=== PATIENT | female | born 1950 | race Caucasian/White ===

== ENCOUNTER → 2018-12-27 | Outpatient (CLI) | payer MEDICARE, OTHER ==
--- NOTE | 2018-12-27 10:19 | BD ---
EXAMINATION TYPE: Axial Bone Density DATE OF EXAM: 12/27/2018 CLINICAL HISTORY: Height: 62.25 Weight: 146 FRAX RISK QUESTIONS: Alcohol (3 or more units per day): no Family History (Parent hip fracture): unsure if mother broke hip, mother did have hip surgery Glucocorticoids (More than 3mos): no (Ex: prednisone, prednisolone, methylprednisolone, dexamethasone, and hydrocortisone). History of Fracture in Adulthood: no Secondary Osteoporosis: 1. Type 1 Diabetes: no 2. Hyperthyroidism: no 3. Menopause before 45: no 4. Malnutrition: no 5. Chronic liver disease: no Rheumatoid Arthritis: no Current Tobacco Use: no RISK FACTORS HISTORY OF: Family History of Osteoporosis: unsure Active: yes Diet low in dairy products/other sources of calcium: at least one serving a day Postmenopausal woman: yes Take estrogen and/or progesterone medications: no Lost more than 2 inches in height since high school: unsure Frequent falls: no Poor Health: no Hyperparathyroidism: no Adrenal Insufficiency: no MEDICATIONS: Thyroid Medications: no Osteoporosis Medications: unsure Additional Medications: Additional History: EXAM MEASUREMENTS: Bone mineral densitometry was performed using the [employer]. Bone mineral density as measured about the Lumbar spine is: ----- L1-L4(G/cm2): -0.8 T Score Values are as follows: ----- L2: -1.2 ----- L3: -0.8 ----- L4: -0.1 ----- L1-L4: -0.8 Bone mineral density has: Decreased -0.9% since study of: 07/09/2013 Bone mineral density about the R hip (g/cm2): 0.703 Bone mineral density about the L hip (g/cm2): 0.721 T Score values are as follows: -----R Neck: -2.4 -----L Neck: -2.3 -----R Total: -2.1 -----L Total: -1.8 Bone mineral density has: Decreased -3.5% since study of: 07/09/2013 IMPRESSION: Osteopenia of the bilateral proximal femora. NOTE: T-SCORE=SD OF THE YOUNG ADULT MEAN.
--- NOTE | 2018-12-28 11:32 | MM ---
Reason for exam: screening (asymptomatic). Last mammogram was performed 5 years and 6 months ago. History: Patient is postmenopausal. Family history of breast cancer in maternal grandmother at age 65. Physical Findings: A clinical breast exam by your physician is recommended on an annual basis and results should be correlated with mammographic findings. MG 3D Screening Mammo W/Cad Bilateral CC and MLO view(s) were taken. Prior study comparison: July 09, 2013, bilateral digital screening mammo w/CAD. June 28, 2012, bilateral digital screening mammo w/CAD. The breast tissue is heterogeneously dense. This may lower the sensitivity of mammography. No suspicious abnormality. No significant changes when compared with prior studies. ASSESSMENT: Negative, BI-RAD 1 RECOMMENDATION: Routine screening mammogram of both breasts in 1 year.
== END | disposition home or self-care (01) ==
LOC: RADMAMWWP 07:03
PROVIDERS: ATTEND Family Medicine
DX: Z12.31 Encounter for screening mammogram for malignant neoplasm of breast (principal); M85.851 Other specified disorders of bone density and structure, right thigh; M85.852 Other specified disorders of bone density and structure, left thigh; Z78.0 Asymptomatic menopausal state
CPT/HCPCS: 77063; 77067; 77080

== ENCOUNTER → 2019-02-07 | Outpatient (CLI) | payer MEDICARE, OTHER ==
--- NOTE | 2019-02-07 14:12 | US ---
EXAMINATION TYPE: US venous doppler duplex LE BI DATE OF EXAM: 02/07/2019 1:43 PM COMPARISON: NONE CLINICAL HISTORY: 68-year-old female Swelling R22.41. Swelling bilateral lower extremities, right giuseppe e worse. SIDE PERFORMED: Bilateral TECHNIQUE: The lower extremity deep venous system is examined utilizing real time linear array sonog loretta with graded compression, doppler sonography and color-flow sonography. FINDINGS: VESSELS IMAGED: External Iliac Vein (EIV) Common Femoral Vein Deep Femoral Vein Greater Saphenous Vein * Femoral Vein Popliteal Vein Small Saphenous Vein * Proximal Calf Veins (* superficial vessels) Right Leg: Negative for DVT Left Leg: Negative for DVT No evidence of DVT in bilateral lower extremities. IMPRESSION: No evidence for DVT within the bilateral lower extremities imaged from the groin to the upper calves.
== END | disposition home or self-care (01) ==
LOC: RADUSWWP 13:00
PROVIDERS: ATTEND Family Medicine
DX: R22.41 Localized swelling, mass and lump, right lower limb (principal)
CPT/HCPCS: 93970

== ENCOUNTER → 2021-09-10 | Outpatient (CLI) | payer MEDICARE, OTHER ==
--- NOTE | 2021-09-14 10:21 | MM ---
Reason for exam: screening (asymptomatic). Last mammogram was performed 2 years and 8 months ago. History: Patient is postmenopausal. Family history of breast cancer in maternal grandmother at age 65. Took hormonal contraceptives for 5 years. Physical Findings: A clinical breast exam by your physician is recommended on an annual basis and results should be correlated with mammographic findings. MG 3D Screening Mammo W/Cad Bilateral CC and MLO view(s) were taken. Prior study comparison: December 27, 2018, bilateral MG 3d screening mammo w/cad. There are scattered fibroglandular densities. A couple punctate calcifications lateral right CC view are benign. No significant changes when compared with prior studies. ASSESSMENT: Negative, BI-RAD 1 RECOMMENDATION: Routine screening mammogram of both breasts in 1 year.
== END | disposition home or self-care (01) ==
LOC: RADMAMWWP 11:38
PROVIDERS: ATTEND Family Medicine
DX: Z12.31 Encounter for screening mammogram for malignant neoplasm of breast (principal)
CPT/HCPCS: 77063; 77067

== ENCOUNTER 2021-09-22 09:08 | Day surgery (SDC) | payer MEDICARE, OTHER ==
[2021-09-17 15:00] VITALS: BMI 23.0
[~2021-09-22 09:08] MED LIST: LACTATED RINGERS 1,000 ML IV SCH
[2021-09-22 09:23] VITALS: TEMP 97.3
[2021-09-22] MEDS ORDERED: LIDOCAINE 1% (10MG/ML) FOR IV START INTRADERMA ONE (09:31)
[2021-09-22] MEDS ORDERED: PROPOFOL 10 MG/ML 20 ML VIAL IV ONE (09:47)
[2021-09-22] MEDS ORDERED: fentaNYL (PF) 50 MCG/ML 2 ML AMP ONE (09:47)
[2021-09-22] MEDS ORDERED: MIDAZOLAM 2 MG/2 ML VIAL ONE (09:47)
--- NOTE | 2021-09-22 09:54 | P.GSHP ---
History of Present Illness H&P Date: 09/22/21 Chief Complaint: Rectal bleeding Patient is here today for colonoscopy. Patient with intermittent rectal bleeding. Family history of colon cancer in 2 separate sisters. Patient has his treatment of adenomatous polyps as well. Last colonoscopy approximately 3 years ago. Past Medical History Additional Past Medical History / Comment(s): CHANGE IN BOWEL HABITS History of Any Multi-Drug Resistant Organisms: None Reported Additional Past Surgical History / Comment(s): COLONOSCOPY Past Anesthesia/Blood Transfusion Reactions: No Reported Reaction Smoking Status: Never smoker - Past Family History Sister(s) Family Medical History: Cancer Medications and Allergies Home Medications Medication Instructions Recorded Confirmed Type No Known Home Medications 09/17/21 09/22/21 History Allergies Allergy/AdvReac Type Severity Reaction Status Date / Time No Known Allergies Allergy Verified 09/22/21 09:19 Surgical - Exam Vital Signs Temp Pulse Resp BP Pulse Ox 97.3 F L 72 18 141/61 97 09/22/21 09:22 09/22/21 09:22 09/22/21 09:22 09/22/21 09:22 09/22/21 09:22 Physical exam: General: Well-developed, well-nourished HEENT: Normocephalic, sclerae nonicteric Abdomen: Nontender, nondistended Extremities: No edema Neuro: Alert and oriented Assessment and Plan (1) Rectal bleeding Narrative/Plan: Will proceed with colonoscopy at this time. Current Visit: Yes Status: Acute Code(s): K62.5 - HEMORRHAGE OF ANUS AND RECTUM SNOMED Code(s): 19270215
--- NOTE | 2021-09-22 10:14 | P.PCN ---
Date of Procedure: 09/22/21 Procedure(s) Performed: PREOPERATIVE DIAGNOSIS: Rectal bleeding, family history of colon cancer POSTOPERATIVE DIAGNOSIS: Diverticulosis PROCEDURE: Colonoscopy ANESTHESIA: MAC SURGEON: Sebas Aparicio M.D. SPECIMENS: None ENDOSCOPIC PROCEDURE: The patient was placed on the endoscopy table in the left decubitus position. The Olympus colonoscope was inserted into the anus and passed under direct visualization to the base of the cecum. The appendiceal orifice was visualized. From that point the scope was slowly withdrawn inspecting all surfaces carefully. There were no neoplastic inflammatory or polypoid lesions throughout the cecum, ascending, transverse, descending, sigmoid and rectum. There was moderate scattered diverticulosis noted. Digital rectal examination was normal. The patient was taken to the recovery room in stable condition per anesthesia guidelines. RECOMMENDATIONS: Resume diet. Follow-up colonoscopy 5 years.
[2021-09-22 10:23] VITALS: RESP 16
[2021-09-22 10:40] VITALS: BP 113/68; PULSE 73
== END 2021-09-22 10:55 ==
LOC: ORWHC2ENDO 09:08
PROVIDERS: ATTEND Surgery
DX: K57.30 Diverticulosis of large intestine without perforation or abscess without bleeding (principal); Z80.0 Family history of malignant neoplasm of digestive organs
CPT/HCPCS: 45378; J2250; J3010; J2704

== ENCOUNTER → 2023-10-17 | Outpatient (CLI) | payer MEDICARE, OTHER ==
--- NOTE | 2023-10-17 12:20 | BD ---
EXAMINATION TYPE: Axial Bone Density DATE OF EXAM: 10/17/2023 CLINICAL HISTORY: 72 years old Female. ICD-10 CODE: Z78.0 ASYMP [place] Height: 63 Weight: 138.4 FRAX RISK QUESTIONS: Alcohol (3 or more units per day): no Family History (Parent hip fracture): no Glucocorticoids (More than 3mos): no (Ex: prednisone, prednisolone, methylprednisolone, dexamethasone, and hydrocortisone). History of Fracture in Adulthood: no Secondary Osteoporosis: 1. Type 1 Diabetes: no 2. Hyperthyroidism: no 3. Menopause before 45: no 4. Malnutrition: no 5. Chronic liver disease: no Rheumatoid Arthritis: no Current Tobacco Use: no RISK FACTORS HISTORY OF: Surgery to Spine/Hip(right/left)/Wrist (right/left): no Additional History: EXAM MEASUREMENTS: Bone mineral densitometry was performed using the [employer] System. Bone mineral density as measured about the Lumbar spine is: ----- L1-L4(G/cm2): 1.102 T Score Values are as follows: ----- L1: -1.5 ----- L2: -1.3 ----- L3: -0.5 ----- L4: 0.3 ----- L1-L4: -0.6 Z Score Values are as follows: ----- L1: 0.2 ----- L2: 0.5 ----- L3: 1.3 ----- L4: 2.1 ----- L1-L4: 1.1 Bone mineral density has: increased 1.3 % since study of: 12.27.2018 Bone mineral density about the R hip (g/cm2): 0.734 Bone mineral density about the L hip (g/cm2): 0.790 T Score values are as follows: -----R Neck: -2.7 -----L Neck: -2.4 -----R Total: -2.2 -----L Total: -1.7 Z Score values are as follows: -----R Neck: -0.9 -----L Neck: -0.6 -----R Total: -0.6 -----L Total: -0.2 Bone mineral density has: decreased -0.3 % since study of: 12.27.2018 FRAX%s: The graph provided illustrates a 16.8% chance for a major osteoporotic fx and a 5.1% chance f or the hips probability for fx in 10 years time. IMPRESSION: Osteoporosis (T Score less than -2.5). There is increased fracture risk and therapy is usually indicated based on age. Re-Screen 1-2 years. NOTE: T-SCORE=SD OF THE YOUNG ADULT MEAN.
--- NOTE | 2023-10-18 11:46 | MM ---
Reason for Exam: Screening (asymptomatic). Last mammogram was performed 2 year(s) and 2 month(s) ago. Patient History: Menarche at age 14. First Full-Term at age 25. Postmenopausal. Patient has history of breast feeding. Patient used Hormonal Contraceptives for 5 years. Maternal grandmother had breast cancer, age 65. Risk Values: Frida 5 year model risk: 1.5%. NCI Lifetime model risk: 4.5%. Prior Study Comparison: 07/09/2013 Bilateral Screening Mammogram, [facility]. 12/27/2018 Bilateral Screening Mammogram, [facility]. 09/10/2021 Bilateral Screening Mammogram, [facility]. Tissue Density: The breast tissue is heterogeneously dense. This may lower the sensitivity of mammography. Findings: Analyzed By CAD. There is no suspicious group of microcalcifications or new suspicious mass in either breast. Overall Assessment: Benign, BI-RAD 2 Management: Screening Mammogram of both breasts in 1 year. . Patient should continue monthly self-breast exams. A clinical breast exam by your physician is recommended on an annual basis. This exam should not preclude additional follow-up of suspicious palpable abnormalities. Note on Frida scores and lifetime risk: 1. A Frida score greater than 3% is considered moderate risk. If this is the case, consider specialist referral to assess eligibility for a risk reducing agent. 2. If overall lifetime risk for the development of breast cancer is 20% or higher, the patient may qualify for future screening with alternating mammogram and breast MRI. Electronically signed and approved by: Mike Angulo M.D. Radiologis
== END | disposition home or self-care (01) ==
LOC: RADMAMWWP 08:28
PROVIDERS: ATTEND Family Medicine
DX: Z12.31 Encounter for screening mammogram for malignant neoplasm of breast (principal); M81.0 Age-related osteoporosis without current pathological fracture; M85.89 Other specified disorders of bone density and structure, multiple sites; Z80.3 Family history of malignant neoplasm of breast; Z78.0 Asymptomatic menopausal state; Z92.0 Personal history of contraception
CPT/HCPCS: 77063; 77067; 77080

== ENCOUNTER → 2024-01-26 | Outpatient (CLI) | payer MEDICARE, OTHER ==
--- NOTE | 2024-01-26 12:12 | XR ---
EXAMINATION TYPE: XR foot complete RT DATE OF EXAM: 01/26/2024 COMPARISON: NONE HISTORY: 73-year-old female M10.9, unspecified gout, pain for 2 days TECHNIQUE: 3 views FINDINGS: Moderate degenerative joint space narrowing at the first MTP joint. There is focal soft tis jaden swelling overlying the medial metatarsal head but no soft tissue calcifications or juxta-articula r erosions seen. Some osteopenia is present. Tiny plantar heel spur. No acute fracture, subluxation, dislocation. IMPRESSION: 1. 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 2. Increased density medial first metatarsal head could reflect bunion changes or gout. No nikki gout y tophus or erosive change seen. 3. Otherwise, no acute osseous abnormality seen.
== END | disposition home or self-care (01) ==
LOC: RADXRMAIN 11:09
PROVIDERS: ATTEND Family Medicine
DX: M19.071 Primary osteoarthritis, right ankle and foot (principal); M21.611 Bunion of right foot; M10.9 Gout, unspecified

== ENCOUNTER → 2024-01-26 | Outpatient (CLI) | payer MEDICARE, OTHER ==
[2024-01-26 21:09] LABS: C Reactive Protein <0.30 mg/dL (0.00-0.80); Rheumatoid Factor, Qnt <15 IU/mL (0-15); Uric Acid 4.5 mg/dL (2.9-7.7)
== END | disposition home or self-care (01) ==
LOC: LABWHC1 10:35
PROVIDERS: ATTEND Nurse Practitioner Family
DX: M10.9 Gout, unspecified (principal); M81.0 Age-related osteoporosis without current pathological fracture
CPT/HCPCS: 36415; 82306; 84550; 85652; 86038; 86140; 86431

== ENCOUNTER 2024-10-26 10:27 | Day surgery (SDC) | payer MEDICARE, OTHER ==
[2024-10-25 08:33] VITALS: BMI 25.3
[~2024-10-26 10:27] MED LIST changes: +HYDROmorphone 0.5 MG/0.5 ML SYRINGE IVP PRN; -LACTATED RINGERS 1,000 ML IV SCH; +LIDOCAINE 1% (10MG/ML) FOR IV START INTRADERMA PRN; +droPERidol 5 MG/2 ML VIAL IVP ONE
[2024-10-26] MEDS: IV FLUID CONTINUATION 1,000 ML IV ONE (11:11)
--- NOTE | 2024-10-26 11:19 | P.GSHP ---
History of Present Illness H&P Date: 10/26/24 Chief Complaint: Incarcerated umbilical hernia 73-year-old female seen in the office in June. Patient was also seen previously. She has a hernia present just above the umbilicus. Intermittent attacks of pain. Last bad attack several months ago. No nausea or vomiting. Past Medical History Past Medical History: No Reported History History of Any Multi-Drug Resistant Organisms: None Reported Past Surgical History: Tubal Ligation Additional Past Surgical History / Comment(s): COLONOSCOPY Past Anesthesia/Blood Transfusion Reactions: No Reported Reaction Smoking Status: Former smoker - Past Family History Mother Family Medical History: Cancer Sister(s) Family Medical History: Cancer Additional Family Medical History / Comment(s): 2 SISTERS WITH COLON CANCER Medications and Allergies Home Medications Medication Instructions Recorded Confirmed Type ALPRAZolam [Xanax] 0.5 mg PO HS PRN 10/25/24 10/25/24 History Allergies Allergy/AdvReac Type Severity Reaction Status Date / Time No Known Allergies Allergy Verified 10/25/24 08:16 Surgical - Exam Vital Signs Temp Pulse Resp BP Pulse Ox 98.1 F 65 16 145/67 94 L 10/26/24 11:12 10/26/24 11:12 10/26/24 11:12 10/26/24 11:12 10/26/24 11:12 Physical exam: General: Well-developed, well-nourished HEENT: Normocephalic, sclerae nonicteric Abdomen: Nontender, nondistended, incarcerate umbilical hernia Extremities: No edema Neuro: Alert and oriented Assessment and Plan (1) Incarcerated umbilical hernia Narrative/Plan: 73-year-old female with incarcerated umbilical hernia. Will proceed with open repair incursion umbilical hernia with probable mesh. Risks of bleeding, infection, recurrence, bladder and bowel injury, numbness, nerve injury were discussed with the patient. The patient understands and wishes to proceed. Current Visit: Yes Status: Acute Code(s): K42.0 - UMBILICAL HERNIA WITH OBSTRUCTION, WITHOUT GANGRENE SNOMED Code(s): 003996670
[2024-10-26] MEDS: ACETAMINOPHEN TAB 500 MG TAB PO PRN (11:26)
[2024-10-26] MEDS: ONDANSETRON 4 MG/2 ML VIAL IVP ONE (11:34)
[2024-10-26] MEDS: LACTATED RINGERS 1,000 ML IV SCH (11:34)
[2024-10-26] MEDS: DEXAMETHASONE SOD PHOSPHATE 4 MG/ML 1 ML VIAL IV ONE (11:37)
[2024-10-26] MEDS: MIDAZOLAM 2 MG/2 ML VIAL IV ONE (11:55)
[2024-10-26] MEDS: HEPARIN SODIUM,PORCINE 5,000 UNIT/ML 1 ML VIAL SQ PRN (12:02)
[2024-10-26] MEDS ORDERED: ROPIVACAINE 5 MG/ML 30 ML VIAL ONE (12:08)
[2024-10-26] MEDS ORDERED: SUCCINYLCHOLINE CHLORIDE 200 MG/10 ML VIAL IV ONE (12:08)
[2024-10-26] MEDS ORDERED: fentaNYL (PF) 50 MCG/ML 2 ML AMP ONE (12:08)
[2024-10-26] MEDS ORDERED: LIDOCAINE 1% INJ 10MG/ML (20 ML MDV) ONE (12:08)
[2024-10-26] MEDS ORDERED: DEXAMETHASONE SOD PHOSPHATE 4 MG/ML 1 ML VIAL ONE (12:08)
[2024-10-26] MEDS ORDERED: LIDOCAINE 4% LTA KIT (4 ML) TOPICAL ONE (12:08)
[2024-10-26] MEDS ORDERED: ePHEDrine 50 MG/ML 1 ML VIAL ONE (12:08)
[2024-10-26] MEDS ORDERED: PROPOFOL 10 MG/ML 20 ML VIAL IV ONE (12:08)
--- NOTE | 2024-10-26 12:12 | P.ANPRN ---
Procedure Note - Anesthesia - Nerve Block Performed Bilateral Erector Spinae Single Time Out Performed: Yes Date of Procedure: 10/26/24 Procedure Start Time: 11:55 Procedure Stop Time: 12:00 Location of Patient: PreOp Indication: Acute Post-Operative Pain, Analgesia, Requested by Surgeon Sedation Type: Sedate with meaningful contact maintained Preparation: Sterile Prep Position: Prone Catheter: None Needle Types: Pajunk Needle Gauge: 21 Ultrasound used to visualize needle placement: Yes Ultrasound used to observe medication spread: Yes Injectate: 0.5% Ropivacaine (see comment for volume) ([id number]+Decadron 4mg, Needle &10 level--- Each side) Blood Aspirated: No Pain Paresthesia on Injection Noted: No Resistance on Injection: Normal Image Stored and Saved: Yes Events: Uneventful and Well Tolerated
[2024-10-26] MEDS: BUPIVACAINE (PF) 0.25% 30 ML VIAL SQ ONE ×2 (12:22)
[2024-10-26 13:29] VITALS: TEMP 96.9
--- NOTE | 2024-10-26 13:41 | P.OP ---
Date of Procedure: 10/26/24 Procedure(s) Performed: PREOPERATIVE DIAGNOSIS: Incarcerated umbilical hernia POSTOPERATIVE DIAGNOSIS: Incarcerated ventral hernia with small umbilical hernia PROCEDURE: Open repair incarcerated ventral and umbilical hernia with mesh SURGEON: Dr. Aparicio ANESTHESIA: General EBL: 10 cc OPERATIVE PROCEDURE DETAILS: The patient was placed in the operating table in the supine position. An incision was made extending from the supraumbilical location initially vertical becoming curvilinear to the right side of the umbilicus using the scalpel. The subcutaneous tissues were dissected bluntly and with cautery. The hernia sac was identified. The patient's hernia turned out to be a ventral hernia. This was present 1 cm superior to the umbilicus. The umbilical attachments to the fascia were divided using electrocautery. The patient had a small 7 mm defect at the base of the umbilicus. Given the close proximity the fascia between the umbilical defect and the ventral hernia defect were included as 1 by dividing the fascia there. We now had a oval-shaped defect measuring 3.2 x 1.5 cm. The hernia sac was reduced into the preperitoneal space. Dissection of the preperitoneal space took place circumferentially. The patient's peritoneal lining was very thin and the left side and inferior side of the preperitoneal space was open. Once we had adequate size a 6.4 cm Ventralex mesh was placed beneath the fascia. This was then sutured in place using trans-fascial 0 Ethibond sutures. The defect was closed horizontally using interrupted vest over pants 0 Ethibond mattress sutures. The subcutaneous tissues were reapproximated using inverted 2-0 & 3-0 Vicryl sutures. The umbilicus was tacked back down to the fascia using a 2-0 Vicryl suture. The skin was closed using 4-0 Monocryl sutures. Skin glue and sterile dressings were then applied. HERNIA CHARACTERISTICS: Length: 1.5 cm Width: 3.2 cm Type: Ventral and umbilical TYPE OF MESH USED: 6.4 cm ventral ex LOCATION OF MESH: [place] FIXATION: 0 Ethibond PREOPERATIVE DISCUSSION ON SMOKING CESSASTION: Yes PREOPERATIVE DISCUSSION ON MORBID OBESITY: Yes PREOPERATIVE DISCUSSION ON APPROPRIATE USE OF NARCOTIC USE: Yes PREOPERATIVE EDUCATION: Multi Modal, Smoking Cessation and Weight Loss with BMI over 35. DISPOSITION: Stable to recovery room
[2024-10-26] MEDS: LACTATED RINGERS 1,000 ML IV ONE (13:58)
[2024-10-26 15:48] VITALS: RESP 20
[2024-10-26 16:02] VITALS: BP 158/64; PULSE 76
[2024-10-26] MEDS ORDERED: IBUPROFEN 600 MG TAB PO SCH (17:00)
[2024-10-26] MEDS ORDERED: ACETAMINOPHEN TAB 325 MG TAB PO SCH (18:00)
== END 2024-10-26 16:18 | disposition home or self-care (01) ==
LOC: OR 10:27
PROVIDERS: ATTEND Surgery
DX: K42.0 Umbilical hernia with obstruction, without gangrene (principal); K43.6 Other and unspecified ventral hernia with obstruction, without gangrene; G89.18 Other acute postprocedural pain; Z87.891 Personal history of nicotine dependence; Z80.0 Family history of malignant neoplasm of digestive organs; Z98.51 Tubal ligation status
CPT/HCPCS: 64999; 49592; C1781; J2250; J0330; J1644; J1100; J0690; J2405; J2003; J3010; J2795; J2704; J0665